=== PATIENT | male | born 1955 | race Caucasian/White ===

== ENCOUNTER 2017-04-22 09:55 | Emergency (ER) | payer OTHER ==
[~2017-04-22] VITALS: Ht 167.6 cm; Wt 85.7 kg
[2017-04-22 10:14] VITALS: Ht 167.6 cm; Wt 85.7 kg
[2017-04-22 11:30] VITALS: BP 152/86
== END 2017-04-22 11:50 | disposition home or self-care (01) ==
LOC: ED 09:55
DX: K42.9 Umbilical hernia without obstruction or gangrene (principal)